=== PATIENT | female | born 1995 ===

== ENCOUNTER 2017-07-12 11:03 | Observation (INO) | payer MEDICAID ==
[2017-07-12] MEDS ORDERED: PREN-96 PO (14:15)
[2017-07-12] MEDS ORDERED: FERR-7 PO (14:15)
== END 2017-07-12 15:20 | disposition home or self-care (01) | DRG 566 ==
LOC: LDRP 11:03
PROVIDERS: ADMIT Specialist; ATTEND Specialist
DX: O48.0 Post-term pregnancy (principal); Z3A.00 Weeks of gestation of pregnancy not specified
CPT/HCPCS: 59025; 76818; 81002; G0378; 96360

== ENCOUNTER 2017-07-12 20:37 | Observation (INO) | payer MEDICAID ==
[~2017-07-12 20:37] MED LIST: FERR-7 PO; PREN-96 PO
== END 2017-07-12 22:40 | disposition home or self-care (01) | DRG 566 ==
LOC: LDRP 20:37
PROVIDERS: ADMIT Specialist; ATTEND Specialist
DX: O62.9 Abnormality of forces of labor, unspecified (principal); O46.93 Antepartum hemorrhage, unspecified, third trimester; Z3A.40 40 weeks gestation of pregnancy
CPT/HCPCS: 59025; 81002; G0378

== ENCOUNTER 2017-07-14 11:05 | Inpatient (IN) | payer MEDICAID ==
[~2017-07-14] VITALS: Ht 149.9 cm; Wt 53.5 kg
[2017-07-14] MEDS ORDERED: LACT. RINGERS/OXYTOCIN 20UNITS 1,000 ML IV SCH (14:31)
[2017-07-14] MEDS ORDERED: PENICILLIN G POT 5MILLION UNIT VIAL ONE (14:40)
[2017-07-14] MEDS ORDERED: LIDOCAINE 2% (LOCAL ANESTH.) PF 5ml SDV ID ONE (14:45)
[2017-07-14] MEDS ORDERED: WITCH HAZEL-GLYCERIN PAD TOP PRN (14:45)
[2017-07-14] MEDS ORDERED: DERMOPLAST 60ML BOTTLE TOP PRN (14:45)
[2017-07-14] MEDS ORDERED: PENICILLIN G POT 5MIL/D5 50ML 50 ML IV ONE (14:45)
[2017-07-14] MEDS ORDERED: NALBUPHINE HCL 10 MG/1ml INJECTION IV PRN (14:45)
[2017-07-14] MEDS ORDERED: PHISODERM TOP SOLN 240ML BTL TOP PRN (14:45)
[2017-07-14] MEDS: LACTATED RINGER'S 1,000 ML IV SCH ×2 (15:13→22:31)
[2017-07-14 15:20] LABS: Basophils # (auto) 0.1 uL; Basophils % (auto) 1.2 % (0.0-2.0); Eosinophils # (auto) 0 uL; Eosinophils % (auto) 0.2 % (0.0-7.0); Hematocrit 37.2 % (36.0-46.0); Mean Corpuscular Volume 77.5 fL (80.0-100.0); Monocytes # (auto) 0.5 uL; Neutrophils # (auto) 8.6 uL; Nucleated Red Blood Cells % 0.1 %
[2017-07-14 15:22] LABS: Hemoglobin 12.2 g/dL (12.2-16.2); Lymphocytes % (auto) 17.6 % (10.0-50.0); Mean Corpuscular Hemoglobin 25.4 pg (28.0-32.0); Mean Corpuscular Hgb Conc. 32.7 g/dL (32.0-36.0); Platelet Count (auto) 231 10^3/uL (140-450); Red Cell Distribution Width 19.1 % (11.8-14.3); White Blood Cell 11.2 10^3/uL (4.4-10.8)
[2017-07-14 15:27] LABS: Urine Bacteria NONE SEEN /hpf (None Seen); Urine Blood 2+ /uL (Negative); Urine Mucus FEW (None Seen); Urine Specific Gravity 1.023 (1.001-1.035); Urine WBC 11 /hpf (0 - 5)
[2017-07-14 15:30] LABS: INR 0.83 (0.9-1.15); Partial Thromboplastin Time 27.2 sec (23.78-33.04)
[2017-07-14 15:37] LABS: Albumin 3.2 g/dL (3.4-5.0); BUN/Creatinine Ratio 15.9; Bilirubin, Total 0.2 mg/dL (0.2-1.0); Calcium 9.3 mg/dL (8.5-10.1); Potassium 3.8 mmol/L (3.5-5.1); Total Protein 7.9 g/dL (6.4-8.2)
[2017-07-14] MEDS ORDERED: ePHEDrine SULFATE 50 MG/ML AMP IV ONE (17:30)
[2017-07-14] MEDS ORDERED: fentaNYL W ROPIVACAINE 150 ML EPI SCH (17:30)
[2017-07-14] MEDS ORDERED: NALOXONE HCL 0.4 MG/ML VIAL IV ONE (17:30)
[2017-07-14] MEDS ORDERED: LACTATED RINGER'S 1,000 ML IV ONE (17:35)
[2017-07-14] MEDS ORDERED: MICO4CRE5 VA (18:16)
[2017-07-14] MEDS: PENICILLIN G POTASSIUM 2,500,000 UNITS in D5W 5% 50 ML IV SCH ×2 (19:34→23:15)
[2017-07-14] MEDS ORDERED: METHYLERGONOVINE MALEATE 0.2 MG/ML AMP IM ONE (20:30)
[2017-07-15] MEDS: PENICILLIN G POTASSIUM 2,500,000 UNITS in D5W 5% 50 ML IV SCH (02:45)
[2017-07-15 07:14] VITALS: BP 111/66
[2017-07-15] MEDS: IBUPROFEN 600 MG TAB PO PRN ×2 (07:26→15:03)
[2017-07-15] MEDS: DOCUSATE CALCIUM 240 MG CAP PO SCH (09:58)
[2017-07-15] MEDS ORDERED: TETANUS-DIPTH-ACEL PERTUSSIS 0.5ML SYRG IM ONE (10:15)
[2017-07-15 11:07] VITALS: BP 111/66
[2017-07-15 15:04] VITALS: BP 125/79
[2017-07-15 19:30] VITALS: BP 111/64
[2017-07-15 19:40] VITALS: BP 111/64
[2017-07-15 23:00] VITALS: BP 112/72
[2017-07-16 02:35] VITALS: BP 118/74
[2017-07-16 06:50] VITALS: BP 114/57
[2017-07-16] MEDS ORDERED: MEASLES, MUMPS & RUBELLA VAC(MMRII) 0.5ML SC ONE (08:00)
[2017-07-16] MEDS: DOCUSATE CALCIUM 240 MG CAP PO SCH (09:56)
[2017-07-16 10:48] VITALS: BP 107/74
== END 2017-07-16 12:30 | disposition home or self-care (01) | DRG 560 ==
LOC: OBSVTOIN 11:05 → LDRP 11:05
PROVIDERS: ADMIT Specialist; ATTEND Specialist
PROC: 10D07Z6 Extraction of Products of Conception, Vacuum, Via Natural or Artificial Opening (ICD-10-PCS; principal; 2017-07-15)
PROC: 0W8NXZZ Division of Female Perineum, External Approach (ICD-10-PCS; 2017-07-15)
PROC: 00HU33Z Insertion of Infusion Device into Spinal Canal, Percutaneous Approach (ICD-10-PCS; 2017-07-15)
PROC: 3E0R3BZ Introduction of Anesthetic Agent into Spinal Canal, Percutaneous Approach (ICD-10-PCS; 2017-07-15)
DX: O99.824 Streptococcus B carrier state complicating childbirth (principal); Z23 Encounter for immunization; Z37.0 Single live birth; Z3A.40 40 weeks gestation of pregnancy; O66.5 Attempted application of vacuum extractor and forceps
CPT/HCPCS: 36415; 51702; 59025; 59409; 62282; 76818; 80053; 81001; 81002; 85025; 85610; 85730; 86592; 86850; 86900; 86901; 90471; 90715; 94760; 96365; 96366; J2540; J2590; J3010; J7060